=== PATIENT | male | born 1935 | race Hispanic/Latino ===

== ENCOUNTER 2017-01-05 10:14 | Inpatient (IN) | payer MEDICARE ==
--- NOTE | 2017-01-05 10:48 | C.PDOC ---
History Of Present Illness The patient, an 81y/o male, presents to the emergency department for evaluation of recurring hypertension since 0830 today. As per , patient awake "like normal," took his Fosamax and Thyroid medication and then became confused, sweaty, and appeared dizzy. Patient has had a recent diarrhea illness, with last diarrheal episodes around 2 weeks ago, "and he's been fine this whole time. " Patient has average blood pressure of 120S. Patient had a similar episode on 10/2016 with unknown cause. Patient is (-) for chest pain, headache, abdominal pain, and focal deficits. Patient is a poor historian; history obtained by . POOR HISTORIAN HX BY RECUR HYPOTENSION 0830. PT AWOKE "LIKE NORMAL", TOOK USUAL FOSAMAX AND THYROID MED THEN BECAME CONFUSED, SWEATY, APPEARED DIZZY. RECENT DIARRHEA ILLNESS, LAST DIARRHEA 2 WEEKS AGO "AND HE'S BEEN FINE THIS WHOLE TIME". AVG BP 120S. SIM EPISODE 10/2016 UNK CAUSE. DENIES CP, ABRAHAM, ABD PAIN, FOCAL DEF EXAM SBP 91, NONTOXIC CV IRREG REG NEG Time Seen by Provider: 01/05/17 10:41 Chief Complaint (Nursing): Medical Clearance History Per: Family () History/Exam Limitations: other (+poor historian ) Current Symptoms Are (Timing): Still Present Additional History Per: Family Past Medical History Reviewed: Historical Data, Nursing Documentation, Vital Signs Vital Signs: Last Vital Signs Temp 98.1 F 01/05/17 19:40 Pulse 2 L 01/05/17 20:00 Resp 20 01/05/17 19:40 BP 121/63 01/05/17 19:40 Pulse Ox 100 01/05/17 22:41 - Medical History PMH: CAD, Gastritis, HTN, Hypercholesterolemia, Hypothyroidism Surgical History: CABG, Cholecystectomy, Coronary Stent (x3) Family History: States: Unknown Family Hx - Social History Hx Tobacco Use: No Hx Alcohol Use: No Hx Substance Use: No - Immunization History Hx Tetanus Toxoid Vaccination: Yes Hx Influenza Vaccination: Yes Hx Pneumococcal Vaccination: Yes Review Of Systems Except As Marked, All Systems Reviewed And Found Negative. Constitutional: Positive for: Sweats, Other (+recurring hypertension ) Cardiovascular: Negative for: Chest Pain Gastrointestinal: Negative for: Abdominal Pain Neurological: Positive for: Confusion, Dizziness. Negative for: Headache Physical Exam - Physical Exam Appears: Non-toxic Skin: Normal Color, Warm, Dry Head: Atraumatic, Normacephalic Eye(s): bilateral: Normal Inspection Oral Mucosa: Moist Neck: Supple Chest: Symmetrical, No Deformity, No Tenderness Cardiovascular: Rhythm Regular (irregularly regular ), Other (+SBP 91) Respiratory: Normal Breath Sounds, No Rales, No Rhonchi, No Wheezing Gastrointestinal/Abdominal: Soft, No Tenderness, No Guarding, No Rebound Extremity: Normal ROM, Capillary Refill (less than 2 seconds) Pulses: Left Dorsalis Pedis: Normal, Right Dorsalis Pedis: Normal Neurological/Psych: Oriented x3, Normal Speech Gait: Steady ED Course And Treatment - Laboratory Results Result Diagrams: 01/05/17 11:21 01/05/17 11:21 ECG: Interpreted By Me ECG Rhythm: Atrial Fibrillation ECG Interpretation: Abnormal Interpretation Of ECG: NEW ONSET AFIB COMPARED TO PRIOR Rate From EC O2 Sat by Pulse Oximetry: 100 (on RA) Pulse Ox Interpretation: Normal - Other Rad CXR X-Ray: Read By Radiologist Interpretation: Accession No. : [id number]. Patient Name / ID : MONTANA HAILE / [id number]. Exam Date : 01/05/2017 10:56:17 ( Approved ). Study Comment : Sex / Age : M / 81Y. Creator : Kodi Dudley MD. Dictator : Kodi Dudley MD. Special Educator : Electronic Equipment Set Up Operator : Kodi Dudley MD. Approver2 : Report Date : 01/05/2017 13:15:32. My Comment : . PROCEDURE: CHEST RADIOGRAPH, 1 VIEW. HISTORY: AMS. COMPARISON: chest dated 2016. FINDINGS: LUNGS: The central pulmonary vasculature is slightly congested in appearance; rule out chronic compensated pulmonary edema/CHF. Patchy bibasilar atelectasis and/or infiltrates [id number]. Questionable small left effusion. PLEURA: No pneumothorax. CARDIOVASCULAR: Borderline/mild cardiomegaly. Sternotomy wires again noted. OSSEOUS STRUCTURES : No significant abnormalities. VISUALIZED UPPER ABDOMEN: Normal. OTHER FINDINGS: None. IMPRESSION: Central pulmonary vasculature is slightly congested in appearance ; rule out chronic compensated pulmonary edema/ CHF Patchy bibasilar atelectasis and/or infiltrates left greater than right. Questionable small left effusion - CT Scan/US CT Head Other Rad Studies (CT/US): Read By Radiologist CT/US Interpretation: Accession No. : [id number]. Patient Name / ID : MONTANA HAILE / [id number]. Exam Date : 01/05/2017 11:57:26 ( Approved ). Study Comment : Sex / Age : M / 81Y. Creator : Enrike Andrew MD. Dictator : Enrike Andrew MD. Special Educator : Electronic Equipment Set Up Operator : Enrike Andrew MD. Approver2 : Report Date : 01/05/2017 12:34:13. My Comment : . PROCEDURE: CT HEAD WITHOUT CONTRAST. HISTORY: AMS, AFIB. COMPARISON: . TECHNIQUE: Axial computed tomography images were obtained through the head /brain without intravenous contrast. Radiation dose: Total exam DLP = mGy- cm. FINDINGS: HEMORRHAGE: No intracranial hemorrhage. BRAIN: No mass effect or edema. No atrophy or chronic microvascular ischemic changes. VENTRICLES: Unremarkable. No hydrocephalus. CALVARIUM: Unremarkable. PARANASAL SINUSES: Unremarkable as visualized. No significant inflammatory changes. MASTOID AIR CELLS: Unremarkable as visualized. No inflammatory changes. OTHER FINDINGS: None. IMPRESSION: Normal CT of the Head. Progress Note: Labs, CT Head, CXR, EKG ordered and reviewed. Pt received IV Fluids. Progress - Re-Evaluation Re-evaluation Note: 01/05/17 10:58 NEW ONSET AFIB, CURRENTLY NOT ON ANTICOAG. RATE CONTROLLED. WILL WAIT CT HEAD RESULTS PRIOR TO ANTICOAG START 01/05/17 12:59 BP IMPROVED. EXAM UNCH PRIOR 01/05/17 13:05 D/W DR MAZARIEGOS: AWARE OF ER FINDINGS. NO KNOWN HO RETINOPATHY, DOES NOT WANT ANTICOAG AT THIS TIME. WILL CONSULT CARDIO CARDIO = DR RIVERA 01/05/17 13:12 REPEAT EKG SINUS TASIA 52 01/05/17 15:52 D/W DR RIVERA WILL SEND DR LEDESMA FOR EVAL - Data Reviewed Data Reviewed: Lab, Diagnostic imaging, EKG, Old records - Continuity of Care Discussed patient case with:: Patient, Family-HIPPA compliant, PMD Disposition Counseled Patient/Family Regarding: Studies Performed, Diagnosis - Disposition Disposition: HOSPITALIZED Disposition Time: 13:15 Condition: STABLE - POA Present On Arrival: None - Clinical Impression Clinical Impression: Hypotension, Atrial fibrillation, new onset - Scribe Statement The provider has reviewed the documentation as recorded by the Scribe (Kenia Ortiz) Provider Attestation: All medical record entries made by the Scribe were at my direction and personally dictated by me. I have reviewed the chart and agree that the record accurately reflects my personal performance of the history, physical exam, medical decision making, and the department course for this patient. I have also personally directed, reviewed, and agree with the discharge instructions and disposition. Decision To Admit - Pt Status Changed To: Hospital Disposition Of: Observation - . Bed Request Type: Telemetry Admitting Physician: Enrike Gallegos Patient Diagnosis: Hypotension, Atrial fibrillation, new onset
[2017-01-05] MEDS ORDERED: Sodium Chloride 0.9% 500 ML IV ONE (10:59)
[2017-01-05 11:24] LABS: BASO % 0.6 % (0.0-2.0); EOS # 0.2 K/uL (0.0-0.7); EOS % 2.8 % (0.0-4.0); HEMATOCRIT 39.3 % (35.0-51.0); LYMPH % 14.1 % (20.0-40.0); MEAN CELL VOLUME 90.7 fL (80.0-94.0); MEAN CORPUSCULAR HEMOGLOBIN 30.3 pg (27.0-31.0); MEAN CORPUSCULAR HGB CONC 33.4 g/dL (33.0-37.0); MEAN PLATELET VOLUME 7.7 fL (7.2-11.7); MONO # 0.6 K/uL (0.0-0.8); MONO % 8.9 % (0.0-10.0); WHITE BLOOD COUNT 7.2 K/uL (4.8-10.8)
[2017-01-05] MEDS ORDERED: Sodium Chloride 0.9% 1,000 ML ONE (11:24)
[2017-01-05 11:26] LABS: VENOUS BLOOD GAS BASE EXCESS -4.3 mmol/L (0.0-2.0); VENOUS BLOOD GAS PCO2 52 mmHg (40-60); VENOUS BLOOD PH 7.26 (7.32-7.43)
[2017-01-05 11:36] LABS: CHLORIDE 98 mmol/L (98-107); INR 1.1; SODIUM 136 mmol/L (132-148)
[2017-01-05 11:37] LABS: POTASSIUM 4.7 mmol/L (3.6-5.2)
[2017-01-05 11:39] LABS: ALB/GLOB RATIO 1.4 (1.0-2.1); ALKALINE PHOSPHATASE 65 U/L (38-126); AST/SGOT 29 U/L (17-59); BILIRUBIN,TOTAL 0.4 mg/dL (0.2-1.3); BLOOD UREA NITROGEN 17 mg/dL (9-20); CARBON DIOXIDE 23 mmol/L (22-30); GFR AFRICAN-AMERICAN > 60; TOTAL PROTEIN 6.9 g/dL (6.3-8.3)
[2017-01-05 11:40] LABS: ALT/SGPT 22 U/L (21-72); CALCIUM 8.6 mg/dl (8.6-10.4); GLUCOSE,RANDOM 94 mg/dL (75-110)
[2017-01-05 11:45] LABS: RBC URINE < 1 /hpf (0-3); URINE BACTERIA RARE (<OCC); URINE BILIRUBIN NEGATIVE (NEGATIVE); URINE BLOOD NEGATIVE (NEGATIVE); URINE COLOR Yellow (YELLOW); URINE GLUCOSE (UA) NORMAL (Normal); URINE KETONE TRACE mg/dL (NEGATIVE); URINE LEUKOCYTE ESTERASE NEG Leu/uL (Negative); URINE PROTEIN 1+ mg/dL (NEGATIVE); URINE UROBILINOGEN NORMAL mg/dL (0.2-1.0); WBC URINE 1 /hpf (0-5)
[2017-01-05] MEDS: Sodium Chloride 0.9% 1,000 ML IV SCH ×3 (11:50→20:14)
--- NOTE | 2017-01-05 12:35 | CT ---
PROCEDURE: CT HEAD WITHOUT CONTRAST. HISTORY: AMS, AFIB COMPARISON: 11/07/16. TECHNIQUE: Axial computed tomography images were obtained through the head/brain without intravenous contrast. Radiation dose: Total exam DLP = mGy-cm. FINDINGS: HEMORRHAGE: No intracranial hemorrhage. BRAIN: No mass effect or edema. No atrophy or chronic microvascular ischemic changes. VENTRICLES: Unremarkable. No hydrocephalus. CALVARIUM: Unremarkable. PARANASAL SINUSES: Unremarkable as visualized. No significant inflammatory changes. MASTOID AIR CELLS: Unremarkable as visualized. No inflammatory changes. OTHER FINDINGS: None. IMPRESSION: Normal CT of the Head.
--- NOTE | 2017-01-05 13:17 | RAD ---
PROCEDURE: CHEST RADIOGRAPH, 1 VIEW HISTORY: AMS COMPARISON: chest dated 10/19/2016. FINDINGS: LUNGS: The central pulmonary vasculature is slightly congested in appearance; rule out chronic compensated pulmonary edema/CHF. Patchy bibasilar atelectasis and/or infiltrates [id number]-[id number]-right. Questionable small left effusion PLEURA: No pneumothorax. CARDIOVASCULAR: Borderline/mild cardiomegaly. Sternotomy wires again noted OSSEOUS STRUCTURES: No significant abnormalities. VISUALIZED UPPER ABDOMEN: Normal. OTHER FINDINGS: None. IMPRESSION: Central pulmonary vasculature is slightly congested in appearance ; rule out chronic compensated pulmonary edema/ CHF Patchy bibasilar atelectasis and/or infiltrates left greater than right. Questionable small left effusion
--- NOTE | 2017-01-05 18:10 | CP.PCM.CON ---
History of Present Illness - History of Present Illness History of Present Illness: Cardiology Consult Note- Dr. Posada' service Patient is an 81 year old male with PMHx of CAD s/p bipass and stents, maculuar degeneration, hypothyroidism, hypercholesterolemia presenting to the ED for near syncopal episodes. Patient's at bedside. Patient reports that around 8 :45am, patient had near syncopal episode. He became very diaphoretic and lightheaded, and almost fell. Patient did not lose consciousness or suffer head trauma. Patient's checked the patient's blood pressure multiple times and reported it averaged around 64/39. During the ambulance ride, the blood pressure remained low. Patient also said that during this episode, he felt very weak and was barely able to speak. PMHx: As stated above PSHx: Coronary bipass in 1999, three stent placement in 2004, cholecystectomy Allergies: NKDA Fam hx: father- gout Social hx: quit smoking in 1999, smoked for over 50 years, on and off, about 1 pack per day. Denies alcohol or drug hx. Review of Systems - Constitutional Constitutional: Weakness. absent: Chills, Fever, Malaise, Weight Loss - EENT Eyes: absent: Blurred Vision, Change in Vision - Cardiovascular Cardiovascular: absent: Chest Pain, Irregular Heart Rhythm, Leg Edema, Palpitations, Pedal Edema - Respiratory Respiratory: absent: Cough, Dyspnea, Hemoptysis, Dyspnea on Exertion, Wheezing - Gastrointestinal Gastrointestinal: absent: Abdominal Pain, Constipation, Diarrhea, Dyspepsia, Nausea, Vomiting - Genitourinary Genitourinary: absent: Difficulty Urinating, Dysuria - Musculoskeletal Musculoskeletal: absent: Numbness, Tingling - Integumentary Integumentary: absent: Sores, Striae, Swelling, Wounds - Neurological Neurological: Dizziness, Weakness. absent: Abnormal Movements, Tingling, Tremor - Psychiatric Psychiatric: absent: Anxiety, Mood Swings, Panic Attacks, Suicidal Ideation - Endocrine Endocrine: absent: Fatigue, Palpitations Past Patient History - Past Social History Smoking Status: Former Smoker Chewing Tobacco Use: No Cigar Use: No Alcohol: Social Drugs: Denies Home Situation {Lives}: Alone - CARDIAC Hx Hypercholesterolemia: Yes Hx Hypertension: Yes - PULMONARY Hx Respiratory Disorders: Yes - ENDOCRINE/METABOLIC Hx Hypothyroidism: Yes - MUSCULOSKELETAL/RHEUMATOLOGICAL Hx Musculoskeletal Disorders: Yes (paget's disease) - GASTROINTESTINAL Hx Gastritis: Yes - PSYCHIATRIC Hx Substance Use: No - SURGICAL HISTORY Hx Cholecystectomy: Yes Hx Coronary Artery Bypass Graft: Yes Hx Coronary Stent: Yes (x3) - ANESTHESIA Hx Anesthesia: Yes Meds Allergies/Adverse Reactions: Allergies Allergy/AdvReac Type Severity Reaction Status Date / Time No Known Allergies Allergy Verified 05/14/13 20:49 - Medications Medications: Current Medications Aspirin (Ecotrin) 81 mg PO DAILY [facility] Clopidogrel Bisulfate (Plavix) 75 mg PO DAILY [facility] Home Med (Alendronate [Fosamax]) 70 mg PO QWK [facility] Home Med ([place]-3 Fatty Acids [Fish Oil]) 300 mg PO DAILY [facility] Home Med (Preservision Areds Softgel) 1 tab PO DAILY [facility] Sodium Chloride (Sodium Chloride 0.9%) 1,000 mls @ 200 mls/hr IV .Q5H [facility] Last Admin: 01/05/17 16:30 Dose: 200 mls/hr Levothyroxine Sodium (Synthroid) 75 mcg PO DAILY [facility] Rosuvastatin Calcium (Crestor) 5 mg PO DAILY [facility] Physical Exam - Constitutional Appears: Non-toxic, No Acute Distress - Head Exam Head Exam: ATRAUMATIC, NORMAL INSPECTION, NORMOCEPHALIC - Eye Exam Pupil Exam: NORMAL ACCOMODATION - ENT Exam ENT Exam: Mucous Membranes Moist - Respiratory Exam Respiratory Exam: Clear to Auscultation Bilateral, NORMAL BREATHING PATTERN. absent: Prolonged Expiratory Phase, Rales, Rhonchi, Wheezes - Cardiovascular Exam Cardiovascular Exam: REGULAR RHYTHM, +S1, +S2 - GI/Abdominal Exam GI & Abdominal Exam: Normal Bowel Sounds, Soft. absent: Distended, Firm, Tenderness - Extremities Exam Extremities exam: Positive for: normal capillary refill, pedal pulses present - Neurological Exam Neurological exam: Alert, CN II-XII Intact, Oriented x3 - Psychiatric Exam Psychiatric exam: Normal Affect, Normal Mood - Skin Skin Exam: Dry, Intact, Normal Color, Warm Results - Vital Signs Recent Vital Signs: Last Vital Signs Temp 97.3 F L 01/05/17 10:25 Pulse 55 L 01/05/17 17:45 Resp 14 01/05/17 17:45 BP 123/61 01/05/17 17:45 Pulse Ox 100 01/05/17 17:45 - Labs Result Diagrams: 01/05/17 11:21 01/05/17 11:21 Assessment & Plan (1) Near syncope Status: Acute Comment: Hypotension vs Paroxysmal A fib vs bradycardia. Head CT w/o contrast- normal. NPO after MN for tilt table test tomorrow. Started on Florinef 0.1mg PO Q12h (2) Paroxysmal atrial fibrillation Status: Acute Comment: Initial EKG at 10:52- atrial fibrillation. Repeat EKG at 13:52- sinus bradycardia, 52bpm. HAS BLED score of 2, mod risk of bleeding. Will anticoagulate with Lovenox 70mg SC Q12h. NPO after MN for tilt table test tomorrow - Assessment and Plan (Free Text) Plan: Discussed plans with Dr. Posada
[2017-01-05] MEDS ORDERED: Enoxaparin 80 mg Syringe SC SCH (22:00)
[2017-01-06] MEDS: Sodium Chloride 0.9% 1,000 ML IV SCH ×6 (02:09→21:43)
[2017-01-06] MEDS: Levothyroxine 75 MCG TAB PO SCH (06:48)
[2017-01-06] MEDS ORDERED: OMEGA PO SCH (10:00)
[2017-01-06] MEDS ORDERED: PRESERVISION AREDS PO SCH (10:00)
[2017-01-06] MEDS ORDERED: FATTY ACIDS PO SCH (10:00)
--- NOTE | 2017-01-06 10:21 | CP.PCM.PN ---
Subjective - Date & Time of Evaluation Date of Evaluation: 01/06/17 Time of Evaluation: 12:00 - Subjective Subjective: Cardiology Note- Dr. Posada' service Patient was seen and examined at bedside. Patient reports no acute complaints except some difficulty sleeping, primarily because he is not comfortable on the hospital bed. No events overnight per nursing. Patient's was at bedside. Objective - Vital Signs/Intake and Output Vital Signs (last 24 hours): Temp Pulse Resp BP Pulse Ox 98.7 F 56 L 19 115/62 98 01/06/17 07:19 01/06/17 07:19 01/06/17 07:19 01/06/17 07:19 01/06/17 07:19 Intake and Output: 01/06/17 01/06/17 06:59 18:59 Intake Total 2600 Output Total 975 Balance 1625 - Medications Medications: Current Medications Aspirin (Ecotrin) 81 mg PO DAILY [facility] Clopidogrel Bisulfate (Plavix) 75 mg PO DAILY [facility] Fludrocortisone Acetate (Florinef) 0.1 mg PO Q12H [facility] Last Admin: 01/06/17 06:48 Dose: Not Given Home Med (Alendronate [Fosamax]) 70 mg PO QWK [facility] Home Med ([place]-3 Fatty Acids [Fish Oil]) 300 mg PO DAILY [facility] Home Med (Preservision Areds Softgel) 1 tab PO DAILY [facility] Sodium Chloride (Sodium Chloride 0.9%) 1,000 mls @ 200 mls/hr IV .Q5H [facility] Last Admin: 01/06/17 07:56 Dose: 200 mls/hr Levothyroxine Sodium (Synthroid) 75 mcg PO DAILY@0630 [facility] Last Admin: 01/06/17 06:48 Dose: Not Given Rosuvastatin Calcium (Crestor) 5 mg PO DAILY [facility] - Labs Labs: PT 11.8 SECONDS (9.7-12.2) 01/05/17 11:21 INR 1.1 01/05/17 11:21 APTT 28 SECONDS (21-34) 01/05/17 11:21 - Constitutional Appears: Non-toxic, No Acute Distress - Head Exam Head Exam: ATRAUMATIC, NORMAL INSPECTION, NORMOCEPHALIC - Eye Exam Pupil Exam: NORMAL ACCOMODATION, PERRL - ENT Exam ENT Exam: Mucous Membranes Moist - Respiratory Exam Respiratory Exam: Clear to Ausculation Bilateral, NORMAL BREATHING PATTERN. absent: Prolonged Expiratory Phase, Rales, Rhonchi, Wheezes - Cardiovascular Exam Cardiovascular Exam: REGULAR RHYTHM, +S1, +S2 - GI/Abdominal Exam GI & Abdominal Exam: Soft, Normal Bowel Sounds. absent: Tenderness, Diminished Bowel Sounds, Hypoactive Bowel Sounds - Neurological Exam Neurological Exam: Alert, Awake, Oriented x3 - Psychiatric Exam Psychiatric exam: Normal Affect, Normal Mood - Skin Skin Exam: Dry, Intact, Normal Color, Warm Assessment and Plan (1) Near syncope Status: Acute (2) Paroxysmal atrial fibrillation Status: Acute - Assessment and Plan (Free Text) Assessment: (1) Near syncope Status: Acute Comment: Hypotension vs Paroxysmal A fib vs bradycardia. Head CT w/o contrast- normal. Continue Florinef 0.1mg PO Q12h Carotid dopplers- prelim- mild bilateral disease Echo- 01/05/17- Borderline concentric LVH. Normal biventricular function. ( Please see full report) (2) Paroxysmal atrial fibrillation Status: Acute Comment: Initial EKG at 10:52- atrial fibrillation. Repeat EKG at 13:52- sinus bradycardia, 52bpm. HAS BLED score of 2, mod risk of bleeding. Cancelled tilt table test. As per Dr. Posada, will discontinue Lovenox, patient is to continue with Aspirin and Plavix. Patient will be transferred to [facility] for EP study and possible pacemaker placement, when bed is available. Transfer order placed, and plan discussed with primary doctor and , Jodi. Patient will be NPO after MN except meds for the procedure. Patient is to followup outpatient with Dr. Posada and Dr. Minaya outpatient for further evaluation and treatment. , Jodi -
--- NOTE | 2017-01-06 12:57 | CP.PCM.HP ---
History of Present Illness - History of Present Illness History of Present Illness: Patient presented with presence, new onset of a. fib and symptomatic bradycardia. Discussed with the client relations specialist. Juarez in need pacemaker. He had similar episode in the past. Present on Admission - Present on Admission Any Indicators Present on Admission: No Past Patient History - Past Medical History & Family History Past Medical History?: Yes - Past Social History Smoking Status: Former Smoker - CARDIAC Hx Hypercholesterolemia: Yes Hx Hypertension: Yes - PULMONARY Hx Respiratory Disorders: Yes - ENDOCRINE/METABOLIC Hx Hypothyroidism: Yes - MUSCULOSKELETAL/RHEUMATOLOGICAL Hx Falls: No - GASTROINTESTINAL Hx Gastritis: Yes - PSYCHIATRIC Hx Substance Use: No - SURGICAL HISTORY Hx Cholecystectomy: Yes Hx Coronary Artery Bypass Graft: Yes Hx Coronary Stent: Yes (x3) - ANESTHESIA Hx Anesthesia: Yes Hx Anesthesia Reactions: No Hx Malignant Hyperthermia: No Meds Allergies/Adverse Reactions: Allergies Allergy/AdvReac Type Severity Reaction Status Date / Time No Known Allergies Allergy Verified 05/14/13 20:49 Physical Exam - Constitutional Appears: Chronically Ill - Head Exam Head Exam: ATRAUMATIC, NORMAL INSPECTION, NORMOCEPHALIC - Eye Exam Eye Exam: Normal appearance - ENT Exam ENT Exam: Mucous Membranes Moist - Neck Exam Neck exam: Positive for: Normal Inspection - Respiratory Exam Respiratory Exam: Clear to Auscultation Bilateral - Cardiovascular Exam Cardiovascular Exam: Bradycardia, +S1, +S2 - GI/Abdominal Exam GI & Abdominal Exam: Normal Bowel Sounds - Neurological Exam Neurological exam: Alert, CN II-XII Intact, Oriented x3 - Psychiatric Exam Psychiatric exam: Normal Affect Results - Vital Signs Recent Vital Signs: Last Vital Signs Temp 98.7 F 01/06/17 07:19 Pulse 62 01/06/17 08:16 Resp 19 01/06/17 07:19 BP 115/62 01/06/17 07:19 Pulse Ox 98 01/06/17 07:19 - Labs Result Diagrams: 01/05/17 11:21 01/05/17 11:21 Labs: Laboratory Results - last 24 hr 01/06/17 07:49 TSH 3rd Generation 2.12 Assessment & Plan (1) Atrial fibrillation, new onset Status: Acute (2) Hypotension Status: Acute (3) Paroxysmal atrial fibrillation Status: Acute (4) Bradycardia Status: Acute (5) Sick sinus syndrome Status: Acute (6) Coronary arteriosclerosis in [place] artery Status: Acute (7) Symptomatic bradycardia Status: Acute - Assessment and Plan (Free Text) Plan: For pacemaker Continue present rx.
--- NOTE | 2017-01-06 13:50 | CARD ---
APPROVED REPORT EXAM: Two-dimensional and M-mode echocardiogram with Doppler and color Doppler. Other Information Quality : GoodRhythm : INDICATION Hypertension/HCVD Syncope A FIB RISK FACTORS Hypertension M-Mode DIMENSIONS RVDd1.15 (2.1-3.2cm)Left Atrium (MM)3.23 (2.5-4.0cm) IVSd1.04 (0.7-1.1cm)Aortic Root3.37 (2.2-3.7cm) LVDd6.07 (4.0-5.6cm)Aortic Cusp Exc.1.56 (1.5-2.0cm) PWd1.01 (0.7-1.1cm)FS (%) 35 % LVDs3.96 (2.0-3.8cm)LVEF (%)63 (>50%) Aortic Valve AoV Peak Xuusilzp297.2cm/[place] Peak GR.6mmHgAI P 1/2 Htpw970dl Mitral Valve MV E Boucchzv88.7cm/sMV A Midruoss21.8cm/sE/A ratio1.9 TDI E/Lateral E'0.0E/Medial E'0.0 Tricuspid Valve TR Peak [id number]/sTR Peak Gr.[id number] LEFT VENTRICLE The Left Ventricle is mildly dilated. There is borderline concentric left ventricular hypertrophy. The left ventricular systolic function is normal. The left ventricular ejection fraction is within the normal range. There is normal LV segmental wall motion. The left ventricular diastolic function is normal. Normal left atrial pressure by Tissue Doppler. RIGHT VENTRICLE The right ventricle is normal size. The right ventricular systolic function is normal. ATRIA The left atrium is borderline dilated. The right atrium size is normal. AORTIC VALVE The aortic valve is normal in structure. There is trace to mild aortic regurgitation. MITRAL VALVE The mitral valve is normal in structure. Mitral regurgitation is trace. TRICUSPID VALVE The tricuspid valve is normal in structure. There is mild tricuspid regurgitation. Right ventricular systolic pressure is estimated at 36 mmHg. PULMONIC VALVE The pulmonary valve is normal in structure. GREAT VESSELS The aortic root displays mild sclerocalcific changes. The IVC is normal in size and collapses >50% with inspiration. PERICARDIAL EFFUSION There is no pericardial effusion. <Conclusion> There is borderline concentric left ventricular hypertrophy. Normal biventricular function There is trace to mild aortic regurgitation. Mitral regurgitation is trace. There is mild tricuspid regurgitation. Right ventricular systolic pressure is estimated at 36 mmHg. No pericardial effusion.
--- NOTE | 2017-01-06 15:03 | VASCLAB ---
PROCEDURE: HISTORY: syncope COMPARISON: None available. TECHNIQUE: Grayscale and duplex Doppler evaluation of the cervical carotid and vertebral arteries were performed. The common carotid, carotid bifurcations and cervical Internal Carotid Artery (ICA) and proximal External Carotid Artery (ECA) were evaluated. The vertebral arteries were evaluated for gross patency and flow direction. Report prepared by Steven Moyer, BS, RVT FINDINGS: RIGHT CAROTID ARTERIES: 1. Common Carotid Artery: No significant focal plaque formation of the right common carotid artery. Maximum Peak Systolic velocity: 50 cm/sec: End-diastolic velocity 10 cm/sec. 2. Carotid Bifurcation: Calcific plaque formation. Maximum Peak Systolic velocity: 60 cm/sec: End-diastolic velocity 8 cm/sec. 3. Internal Carotid Artery: Minimal plaque formation of the right proximal ICA which does not result in hemodynamically significant stenosis. Plaque description: 3.1. Proximal Segment: Peak systolic velocity 67 cm/sec: End-diastolic velocity 18 cm/sec - % stenosis 0-15% 3.2. Middle Segment: Peak systolic velocity 78 cm/sec: End-diastolic velocity 23 cm/sec - % stenosis 0-15% 3.3. Distal Segment: Peak systolic velocity 71 cm/sec: End-diastolic velocity 20 cm/sec - % stenosis 0-15% 4. External Carotid Artery: No significant focal plaque formation. Peak systolic velocity 117 cm/sec 5. ICA/CCA Ratio: 1.6 LEFT CAROTID ARTERIES: 1. Common Carotid Artery: No significant focal plaque formation of the left common carotid artery. Maximum Peak Systolic velocity: 82 cm/sec: End-diastolic velocity 12 cm/sec. 2. Carotid Bifurcation: Calcific plaque formation. Maximum Peak Systolic velocity: 75 cm/sec: End-diastolic velocity 7 cm/sec. 3. Internal Carotid Artery: Severe plaque formation of the left proximal ICA which does not results in a hemodynamically significant stenosis. Plaque description: 3.1. Proximal Segment: Peak systolic velocity 94 cm/sec: End-diastolic velocity 24 cm/sec - % stenosis 0-15% 3.2. Middle Segment: Peak systolic velocity 53 cm/sec: End-diastolic velocity 12 cm/sec - % stenosis 0-15% 3.3. Distal Segment: Peak systolic velocity 89 cm/sec: End-diastolic velocity 25 cm/sec - % stenosis 0-15% 4. External Carotid Artery: No significant focal plaque formation. Peak systolic velocity 139 cm/sec 5. ICA/CCA Ratio: 1.1 VERTEBRAL ARTERIES: 1. Right Vertebral Artery: The right vertebral artery flow direction is antegrade. 2. Left Vertebral Artery: The left vertebral artery flow direction is antegrade. OTHER FINDINGS: 1. Right Brachial Blood pressure: 130 mmHg. 2. Left Brachial Blood pressure: 134 mmHg. IMPRESSION: RIGHT: Duplex scan does not suggest hemodynamically significant stenosis of the right extracranial carotid arteries. LEFT: Duplex scan does not suggest hemodynamically significant stenosis of the left extracranial carotid arteries.
--- NOTE | 2017-01-06 20:05 | CARD ---
APPROVED REPORT EKG Measurement Heart [id number] <Conclusion> Atrial fibrillation Abnormal ECG
--- NOTE | 2017-01-06 20:05 | CARD ---
APPROVED REPORT EKG Measurement Heart [id number] <Conclusion> Sinus bradycardia Otherwise normal ECG
[2017-01-07] MEDS: Sodium Chloride 0.9% 1,000 ML IV SCH ×3 (00:38→09:48)
[2017-01-07] MEDS: Levothyroxine 75 MCG TAB PO SCH (05:53)
--- NOTE | 2017-01-07 07:25 | CP.PCM.PN ---
Subjective - Date & Time of Evaluation Date of Evaluation: 01/07/17 Time of Evaluation: 07:40 - Subjective Subjective: Cardiology Note- Dr. Posada' service Patient was seen and examined at bedside. Patient has no acute complaints today. No events overnight per nursing. Patient understands that he will be transferred to [place] as soon as a bed is available for EP study and possible pacemaker placement. Objective - Vital Signs/Intake and Output Vital Signs (last 24 hours): Temp Pulse Resp BP Pulse Ox 98.6 F 60 20 144/71 96 01/06/17 23:45 01/07/17 03:00 01/06/17 23:45 01/07/17 00:41 01/06/17 23:45 Intake and Output: 01/07/17 01/07/17 06:59 18:59 Intake Total 3510 Output Total 2625 Balance 885 - Medications Medications: Current Medications Aspirin (Ecotrin) 81 mg PO DAILY [facility] Last Admin: 01/06/17 10:48 Dose: 81 mg Clopidogrel Bisulfate (Plavix) 75 mg PO DAILY [facility] Last Admin: 01/06/17 10:48 Dose: 75 mg Fludrocortisone Acetate (Florinef) 0.1 mg PO Q12H [facility] Last Admin: 01/07/17 05:53 Dose: 0.1 mg Sodium Chloride (Sodium Chloride 0.9%) 1,000 mls @ 200 mls/hr IV .Q5H [facility] Last Admin: 01/07/17 05:55 Dose: 200 mls/hr Levothyroxine Sodium (Synthroid) 75 mcg PO DAILY@0630 [facility] Last Admin: 01/07/17 05:53 Dose: 75 mcg Rosuvastatin Calcium (Crestor) 5 mg PO DAILY [facility] Last Admin: 01/06/17 10:48 Dose: 5 mg - Labs Labs: PT 11.8 SECONDS (9.7-12.2) 01/05/17 11:21 INR 1.1 01/05/17 11:21 APTT 28 SECONDS (21-34) 01/05/17 11:21 - Constitutional Appears: Non-toxic, No Acute Distress - Head Exam Head Exam: ATRAUMATIC, NORMAL INSPECTION, NORMOCEPHALIC - Eye Exam Pupil Exam: NORMAL ACCOMODATION, PERRL - ENT Exam ENT Exam: Mucous Membranes Moist - Respiratory Exam Respiratory Exam: Clear to Ausculation Bilateral, NORMAL BREATHING PATTERN. absent: Prolonged Expiratory Phase, Rales, Rhonchi, Wheezes - Cardiovascular Exam Cardiovascular Exam: REGULAR RHYTHM, +S1, +S2 - GI/Abdominal Exam GI & Abdominal Exam: Soft, Normal Bowel Sounds. absent: Tenderness, Diminished Bowel Sounds, Hypoactive Bowel Sounds - Extremities Exam Extremities Exam: Normal Capillary Refill - Neurological Exam Neurological Exam: Alert, Awake, Oriented x3 - Psychiatric Exam Psychiatric exam: Normal Affect, Normal Mood - Skin Skin Exam: Dry, Intact, Normal Color, Warm Assessment and Plan (1) Near syncope Status: Acute (2) Paroxysmal atrial fibrillation Status: Acute - Assessment and Plan (Free Text) Assessment: (1) Near syncope Status: Acute Comment: Hypotension vs Paroxysmal A fib vs bradycardia. Head CT w/o contrast- normal. Continue Florinef 0.1mg PO Q12h Carotid dopplers- prelim- mild bilateral disease Echo- 01/05/17- Borderline concentric LVH. Normal biventricular function. ( Please see full report) (2) Paroxysmal atrial fibrillation Status: Acute Comment: Initial EKG at 10:52- atrial fibrillation. Repeat EKG at 13:52- sinus bradycardia, 52bpm. HAS BLED score of 2, mod risk of bleeding. Cancelled tilt table test. As per Dr. Posada, will discontinue Lovenox, patient is to continue with Aspirin and Plavix. Patient will be transferred to [facility] for EP study and possible pacemaker placement, when bed is available. Transfer order placed, and plan discussed with primary doctor and , Jodi. Patient will be NPO after MN except meds for the procedure. Patient is to followup outpatient with Dr. Posada and Dr. Minaya outpatient for further evaluation and treatment. Patient will return to [facility] after procedure. , Jodi -
[2017-01-07 07:49] VITALS: BP 122/57; RESP 18; TEMP 98.2
[2017-01-07 12:22] VITALS: PULSE 48; O2SAT 96
--- NOTE | 2017-01-08 09:52 | CP.PCM.DIS ---
Provider - Provider Date of Admission: 01/06/17 13:00 Attending physician: Morales Sanchez MD Time Spent in preparation of Discharge (in minutes): 10 Diagnosis - Discharge Diagnosis (1) Atrial fibrillation, new onset Status: Acute (2) Hypotension Status: Acute (3) Paroxysmal atrial fibrillation Status: Acute (4) Bradycardia Status: Acute (5) Sick sinus syndrome Status: Acute (6) Coronary arteriosclerosis in [place] artery Status: Acute (7) Symptomatic bradycardia Status: Acute Hospital Course - Lab Results Lab Results: Most Recent Lab Values WBC 7.2 K/uL (4.8-10.8) 01/05/17 11:21 RBC 4.33 Mil/uL (4.40-5.90) L 01/05/17 11:21 Hgb 13.1 g/dL (12.0-18.0) 01/05/17 11:21 Hct 39.3 % (35.0-51.0) 01/05/17 11:21 MCV 90.7 fL (80.0-94.0) 01/05/17 11:21 MCH 30.3 pg (27.0-31.0) 01/05/17 11:21 MCHC 33.4 g/dL (33.0-37.0) 01/05/17 11:21 RDW 14.0 % (11.5-14.5) 01/05/17 11:21 Plt Count 163 K/uL (130-400) 01/05/17 11:21 MPV 7.7 fL (7.2-11.7) 01/05/17 11:21 Neut % (Auto) 73.6 % (50.0-75.0) 01/05/17 11:21 Lymph % (Auto) 14.1 % (20.0-40.0) L 01/05/17 11:21 [place] % (Auto) 8.9 % (0.0-10.0) 01/05/17 11:21 Eos % (Auto) 2.8 % (0.0-4.0) 01/05/17 11:21 Baso % (Auto) 0.6 % (0.0-2.0) 01/05/17 11:21 Neut # 5.3 K/uL (1.8-7.0) 01/05/17 11:21 Lymph # 1.0 K/uL (1.0-4.3) 01/05/17 11:21 [place] # 0.6 K/uL (0.0-0.8) 01/05/17 11:21 Eos # 0.2 K/uL (0.0-0.7) 01/05/17 11:21 Baso # 0.0 K/uL (0.0-0.2) 01/05/17 11:21 PT 11.8 SECONDS (9.7-12.2) 01/05/17 11:21 INR 1.1 01/05/17 11:21 APTT 28 SECONDS (21-34) 01/05/17 11:21 pO2 20 mm/Hg (30-55) L 01/05/17 11:23 VBG pH 7.26 (7.32-7.43) L 01/05/17 11:23 VBG pCO2 52 mmHg (40-60) 01/05/17 11:23 VBG HCO3 19.6 mmol/L 01/05/17 11:23 VBG Total CO2 24.9 mmol/L (22-28) 01/05/17 11:23 VBG O2 Sat (Calc) 26.1 % (40-65) L 01/05/17 11:23 VBG Base Excess -4.3 mmol/L (0.0-2.0) L 01/05/17 11:23 VBG Potassium 4.5 mmol/L (3.6-5.2) 01/05/17 11:23 Sodium 134.0 mmol/l (132-148) 01/05/17 11:23 Chloride 106.0 mmol/L (98-107) 01/05/17 11:23 Glucose 98 mg/dl (75-110) 01/05/17 11:23 Lactate 1.0 mmol/L (0.7-2.1) 01/05/17 11:23 Sodium 136 mmol/L (132-148) 01/05/17 11:21 Potassium 4.7 mmol/L (3.6-5.2) 01/05/17 11:21 Chloride 98 mmol/L (98-107) 01/05/17 11:21 Carbon Dioxide 23 mmol/L (22-30) 01/05/17 11:21 Anion Gap 20 (10-20) 01/05/17 11:21 BUN 17 mg/dL (9-20) 01/05/17 11:21 Creatinine 0.9 MG/DL (0.8-1.5) 01/05/17 11:21 Est GFR ( Amer) > 60 01/05/17 11:21 Est GFR (Non-Af Amer) > 60 01/05/17 11:21 Random Glucose 94 mg/dL (75-110) 01/05/17 11:21 Calcium 8.6 mg/dl (8.6-10.4) 01/05/17 11:21 Total Bilirubin 0.4 mg/dL (0.2-1.3) 01/05/17 11:21 AST 29 U/L (17-59) 01/05/17 11:21 ALT 22 U/L (21-72) 01/05/17 11:21 Alkaline Phosphatase 65 U/L (38-126) 01/05/17 11:21 Troponin I < 0.0120 ng/mL (0.00-0.120) 01/05/17 11:21 Total Protein 6.9 g/dL (6.3-8.3) 01/05/17 11:21 Albumin 4.0 g/dL (3.5-5.0) 01/05/17 11:21 Globulin 2.9 gm/dL (2.2-3.9) 01/05/17 11:21 Albumin/Globulin Ratio 1.4 (1.0-2.1) 01/05/17 11:21 TSH 3rd Generation 2.12 mIU/L (0.46-4.68) 01/06/17 07:49 Venous Blood Potassium 4.5 mmol/L (3.6-5.2) 01/05/17 11:23 Urine Color Yellow (YELLOW) 01/05/17 11:28 Urine Clarity Clear (Clear) 01/05/17 11:28 Urine pH 6.0 (5.0-8.0) 01/05/17 11:28 Ur Specific [place] 1.010 (1.003-1.030) 01/05/17 11:28 Urine Protein 1+ mg/dL (NEGATIVE) H 01/05/17 11:28 Urine Glucose (UA) Normal mg/dL (Normal) 01/05/17 11:28 Urine Ketones Trace mg/dL (NEGATIVE) 01/05/17 11:28 Urine Blood Negative (NEGATIVE) 01/05/17 11:28 Urine Nitrate Negative (NEGATIVE) 01/05/17 11:28 Urine Bilirubin Negative (NEGATIVE) 01/05/17 11:28 Urine Urobilinogen Normal mg/dL (0.2-1.0) 01/05/17 11:28 Ur Leukocyte Esterase Neg Trey/uL (Negative) 01/05/17 11:28 Urine WBC (Auto) 1 /hpf (0-5) 01/05/17 11:28 Urine RBC (Auto) < 1 /hpf (0-3) 01/05/17 11:28 Urine Bacteria Rare (<OCC) 01/05/17 11:28 Hyaline Casts 3-5 /lpf (0-2) H 01/05/17 11:28 - Hospital Course Hospital Course: Patient presented with presence, bradycardia, new onset of paroxysmal a.fib. On 01/07 patient was transferred to [facility] for further dx and rx. Discharge Exam - Head Exam Head Exam: ATRAUMATIC, NORMAL INSPECTION, NORMOCEPHALIC Additional comments: As per cardiology note. Patient was dc to before I was able to examined him Discharge Plan - Follow Up Plan Condition: STABLE Disposition: Trans to Other Acute Care Hosp
[2017-01-12] MEDS ORDERED: Home Med 1 UNIT (Alendronate [Fosamax] 70 MG) PO SCH (10:00)
== END 2017-01-07 21:50 | disposition short-term general hospital (02) | DRG 310 ==
LOC: C.ER 10:14 → C.9E 13:16 → C.6T 18:58 → OBSVTOIN 01-06 13:00 → C.6T 01-07 13:37
PROVIDERS: ADMIT Internal Medicine; ATTEND Internal Medicine
DX: I48.0 Paroxysmal atrial fibrillation (principal); I49.5 Sick sinus syndrome; I95.9 Hypotension, unspecified; Z95.1 Presence of aortocoronary bypass graft; I25.10 Atherosclerotic heart disease of native coronary artery without angina pectoris; I10 Essential (primary) hypertension; E78.00 Pure hypercholesterolemia, unspecified; E03.9 Hypothyroidism, unspecified; Z95.5 Presence of coronary angioplasty implant and graft; Z87.891 Personal history of nicotine dependence

== ENCOUNTER 2019-02-08 10:55 | Outpatient (CLI) | payer MEDICARE | END 2019-02-08 10:56 | disposition home or self-care (01) | LOC: C.RADIC 10:55 | DX: S79.911A Unspecified injury of right hip, initial encounter (principal) ==

== ENCOUNTER 2019-02-14 09:46 | Outpatient (CLI) | payer MEDICARE | END 2019-02-14 09:47 | disposition home or self-care (01) | LOC: C.CTH 09:46 ==